=== PATIENT | male | born 1995 | race Caucasian/White ===

== ENCOUNTER 2019-02-16 23:08 | Emergency (ER) | payer SELFPAY ==
[~2019-02-16] VITALS: Ht 170.2 cm; Wt 68.0 kg
[2019-02-16 23:08] VITALS: BP 128/88
--- NOTE | 2019-02-16 23:08 | NUR ---
PT PLACED IN BED 2
--- NOTE | 2019-02-16 23:15 | NUR ---
24 YO M OWEN FROM [employer] FOR S/SX ANXIETY THAT STARTED AROUND 2100. EMS REPORTED PT TACHYCARDIC IN AMBULANCE (130). PT STATES HE STARTED FEELING LIKE HE MIGHT BE HAVING A PANIC ATTACK WITH RACING HEART RATE. PT ADMITS TO TRYING COCAINE FOR THE FIRST TIME TODAY. -- PT ARRIVES TO ED AWAKE, A/O X 4. APPEARS CALM. IS COOPERATIVE, ANSWERING QUESTIONS APPROPRIATELY, BEHAVIOR AGE APPROPRIATE. -- SKIN PINK, WARM, DRY. BREATHING EVEN, UNLABORED. VSS/WNL. HR: 99. -- PT ADMITS TO USING 1/4 GRAM COCAINE AROUND 1900. DENIES ALCOHOL OR ANY OTHER ILICIT DRUG USE TODAY. PMH-- DENIES RX-- DENIES
--- NOTE | 2019-02-16 23:57 | NUR ---
PT IN BED AWAKE AND CALM, WILL CONTINUE TO MONITOR.
--- NOTE | 2019-02-17 00:03 | NUR ---
Dr. Goodwin evaluating patient at bedside.
[2019-02-17 00:20] VITALS: BP 120/87
--- NOTE | 2019-02-17 00:20 | NUR ---
Patient discharged with v/s stable. Written and verbal after care instructions given and explained. Patient alert, oriented and verbalized understanding of instructions. Ambulatory with steady gait. All questions addressed prior to discharge. ID band removed. Patient advised to follow up with PMD. Rx of Benadryl given. Patient educated on indication of medication including possible reaction and side effects. Opportunity to ask questions provided and answered.
== END 2019-02-17 00:20 | disposition home or self-care (01) ==
LOC: MED 23:08
DX: F41.9 Anxiety disorder, unspecified (principal); J06.9 Acute upper respiratory infection, unspecified
CPT/HCPCS: 99282